=== PATIENT | male | born 1990 | race Caucasian/White ===

== ENCOUNTER → 2019-01-05 | Outpatient (REF) | payer OTHER | LOC: M SFHCLERA 10:29 | PROVIDERS: ATTEND Nurse Practitioner Family | DX: R53.81 Other malaise (principal) ==

== ENCOUNTER → 2020-03-05 | Outpatient (CLI) | payer SELFPAY | LOC: M LABSMTC 11:50 | PROVIDERS: ATTEND Pediatrics | DX: Z11.59 Encounter for screening for other viral diseases (principal) ==

== ENCOUNTER 2020-11-09 15:24 | Emergency (ER) | payer OTHER ==
[~2020-11-09] VITALS: Ht 180.3 cm; Wt 77.3 kg
--- NOTE | 2020-11-09 19:03 | REP ---
INDICATION: lifting injury. COMPARISON: None. TECHNIQUE: Five views FINDINGS: Normal alignment and bone texture PA disc spaces well maintained. No fractures. Spondylolysis right-side L5-S1 level. 6 degrees scoliosis convexity to the left. IMPRESSION: Spondylo lysis right side L5-S1 level. No fractures. Normal alignment. <Electronically signed by Jostin Irwin > 11/09/20 [id number]
[2020-11-09] MEDS ORDERED: CYCL-707 PO (19:17)
[2020-11-09] MEDS ORDERED: IBUP80TA PO (19:17)
[2020-11-09 19:31] VITALS: BP 122/63
== END 2020-11-09 19:31 | disposition home or self-care (01) ==
LOC: M ED 15:24
DX: S39.012A Strain of muscle, fascia and tendon of lower back, initial encounter (principal); X58.XXXA Exposure to other specified factors, initial encounter; Y92.89 Other specified places as the place of occurrence of the external cause; Y99.0 Civilian activity done for income or pay; F17.210 Nicotine dependence, cigarettes, uncomplicated

== ENCOUNTER → 2021-07-02 | Outpatient (REF) | payer OTHER, SELFPAY ==
[~2021-07-02] MED LIST: CYCL-707 PO; IBUP80TA PO
== END ==
LOC: M LAB REF 16:35
PROVIDERS: ATTEND Physician Assistant Medical
DX: R50.9 Fever, unspecified (principal)